=== PATIENT | female | born 1970 | race African-American/Black ===

== ENCOUNTER 2016-10-22 07:55 | Day surgery (SDC) | payer MEDICARE, MEDICAID ==
[~2016-10-22] VITALS: Ht 157.5 cm; Wt 106.0 kg
[2016-10-22] MEDS ORDERED: IRON1TAB60 PO (08:49)
[2016-10-22] MEDS ORDERED: DULO20CA45 PO (08:49)
[2016-10-22] MEDS ORDERED: RIVA10TA PO (08:49)
[2016-10-22] MEDS ORDERED: ZIPR20CA2 PO (08:49)
[2016-10-22] MEDS ORDERED: MULT-257 PO (08:49)
[2016-10-22] MEDS ORDERED: CYAN500T42 PO (08:49)
[2016-10-22] MEDS ORDERED: POTA25TA4 PO (08:49)
[2016-10-22] MEDS ORDERED: ZOLP-413 PO (08:49)
[2016-10-22] MEDS ORDERED: BENZ2AMP4 PO (08:49)
[2016-10-22] MEDS ORDERED: LACTATED RINGERS 1,000 ML IV SCH (08:56)
[2016-10-22 09:01] VITALS: BP 122/85
[2016-10-22 09:07] LABS: HCG UR OBC PASS
[2016-10-22] MEDS ORDERED: PROPOFOL 10 MG/ML, 50ML ONE (09:16)
== END 2016-10-22 11:45 ==
LOC: OUT 07:55
PROVIDERS: ATTEND Internal Medicine Gastroenterology
DX: K55.21 Angiodysplasia of colon with hemorrhage (principal); K21.9 Gastro-esophageal reflux disease without esophagitis; D50.9 Iron deficiency anemia, unspecified; K57.30 Diverticulosis of large intestine without perforation or abscess without bleeding; K64.8 Other hemorrhoids; J44.9 Chronic obstructive pulmonary disease, unspecified; F32.9 Major depressive disorder, single episode, unspecified; Z98.84 Bariatric surgery status; Z88.8 Allergy status to other drugs, medicaments and biological substances; Z91.041 Radiographic dye allergy status; Z98.890 Other specified postprocedural states; Z87.39 Personal history of other diseases of the musculoskeletal system and connective tissue
CPT/HCPCS: 43239; 45382; 81025; 88305; J2704

== ENCOUNTER → 2019-10-19 | Outpatient (CLI) | payer MEDICARE, MEDICAID ==
[~2019-10-19] MED LIST: BENZ2AMP4 PO; CYAN500T42 PO; DULO20CA45 PO; IRON1TAB60 PO; MULT-257 PO; POTA25TA4 PO; RIVA10TA2 PO; ZIPR20CA2 PO; ZOLP-413 PO
== END | disposition home or self-care (01) ==
LOC: CVU 09:22
PROVIDERS: ATTEND Internal Medicine Cardiovascular Disease
DX: I07.1 Rheumatic tricuspid insufficiency (principal); I51.7 Cardiomegaly; D68.61 Antiphospholipid syndrome
CPT/HCPCS: 93306; 93356

== ENCOUNTER → 2020-01-03 | Outpatient (CLI) | payer MEDICARE, MEDICAID ==
[~2020-01-03] MED LIST changes: +REGADENOSON 0.4 MG/5 ML SYRINGE ONE
== END | disposition home or self-care (01) ==
LOC: CFH 12:24
PROVIDERS: ATTEND Internal Medicine Cardiovascular Disease
DX: R94.31 Abnormal electrocardiogram [ECG] [EKG] (principal); R00.1 Bradycardia, unspecified
CPT/HCPCS: 78452; 93017; A9502; J2785

== ENCOUNTER 2020-06-26 22:58 | Emergency (ER) | payer MEDICARE, MEDICAID ==
[~2020-06-26] VITALS: Ht 172.7 cm; Wt 85.7 kg
[~2020-06-26 22:58] MED LIST changes: -REGADENOSON 0.4 MG/5 ML SYRINGE ONE
[2020-06-27 00:13] VITALS: BP 129/47
--- NOTE | 2020-06-27 00:13 | NUR ---
LAB AT BEDSIDE
--- NOTE | 2020-06-27 00:17 | NUR ---
THIS IS A 50F THAT COMES IN FOR FLANK PAIN FOR A COUPLE DAYS, DENIES PAINFUL URINATION HOWEVER REPORTS INC IN FREQUENCY, PT RESTING ON GURNEY NADN NO NEEDS AT THIS TIME. URINE IN LAB. PT CONNECTED TO MONITORING VSS
[2020-06-27 00:30] LABS: MICROSCOPIC INDICATED
[2020-06-27 00:30] LABS: BASOPHILS % (AUTO) 1 % (0-1); EOSINOPHILS % (AUTO) 2 % (1-7); LYMPHOCYTES % (AUTO) 28 % (22-44); MEAN CORPUSCULAR HEMOGLOBIN 28.2 pg (27.0-34.8); MEAN CORPUSCULAR HGB CONC 32.3 g/dL (32.4-35.8); MEAN PLATELET VOLUME 7.3 fL (7.4-10.4); MONOCYTES % (AUTO) 8 % (2-9); NEUTROPHILS % (AUTO) 61 % (42-75); PLATELET COUNT 235 x10^3/uL (130-400); RED BLOOD COUNT 4.54 x10^6/uL (3.82-5.3); RED CELL DISTRIBUTION WIDTH 15.6 % (9.6-15.2)
[2020-06-27 00:36] LABS: ALANINE AMINOTRANSFERASE 33 U/L (12-78); ALBUMIN 3.3 g/dL (3.4-5.0); ANION GAP 4 mmol/L (5-15); CALCIUM 8.4 mg/dL (8.5-10.1); CHLORIDE 109 mmol/L (98-107); CREATININE 0.97 mg/dL (0.55-1.02)
[2020-06-27 00:39] LABS: ALKALINE PHOSPHATASE 74 U/L (45-117); BILIRUBIN,TOTAL 0.4 mg/dL (0.2-1.0); MD NO; TOTAL PROTEIN 7.7 g/dL (6.4-8.2)
--- NOTE | 2020-06-27 01:57 | NUR ---
PT REFUSING TO DC SLAMMING PERSONAL ITEMS IN ROOM. SECURITY NOTIFIED
== END 2020-06-27 02:01 | disposition home or self-care (01) ==
LOC: ED 06-27 00:33
DX: S39.012A Strain of muscle, fascia and tendon of lower back, initial encounter (principal); Z76.0 Encounter for issue of repeat prescription; M51.36 Other intervertebral disc degeneration, lumbar region; X58.XXXA Exposure to other specified factors, initial encounter; Y93.89 Activity, other specified; Y92.89 Other specified places as the place of occurrence of the external cause; Y99.8 Other external cause status
CPT/HCPCS: 36415; 72110; 80053; 81001; 84703; 85025; 87086; 87147; 99284

== ENCOUNTER 2020-08-22 10:54 | Emergency (ER) | payer MEDICARE, MEDICAID ==
[~2020-08-22] VITALS: Ht 162.6 cm; Wt 79.0 kg
--- NOTE | 2020-08-22 11:13 | NUR ---
PT BROUGHT BY AMBULANCE FROM [facility]. PT SLOW TO RESPOND AND ANSWERING QUESTIONS IN A WHISPER, DIFFICULT TO HEAR AND UNDERSTAND. PT STATES SHE CANNOT TALK. PT INDICATES PAIN BACK OF HEAD WHEN ASKED. PT FOLLOWS COMMANDS, MOVES ALL EXTREMITIES AND COOPERATIVE. PT APPEARS DISORIENTED. LAB AT BEDSIDE DRAWING BLOOD
[2020-08-22 11:18] LABS: BASOPHILS % (AUTO) 0 % (0-1); EOSINOPHILS % (AUTO) 1 % (1-7); LYMPHOCYTES % (AUTO) 13 % (22-44); MEAN CORPUSCULAR HEMOGLOBIN 28.7 pg (27.0-34.8); MEAN CORPUSCULAR HGB CONC 32.3 g/dL (32.4-35.8); MEAN PLATELET VOLUME 7.3 fL (7.4-10.4); MONOCYTES % (AUTO) 6 % (2-9); NEUTROPHILS % (AUTO) 80 % (42-75); PLATELET COUNT 232 x10^3/uL (130-400); RED BLOOD COUNT 4.54 x10^6/uL (3.82-5.3); RED CELL DISTRIBUTION WIDTH 15.4 % (9.6-15.2)
[2020-08-22 11:28] LABS: ALANINE AMINOTRANSFERASE 25 U/L (12-78); ALBUMIN 3.4 g/dL (3.4-5.0); ANION GAP 5 mmol/L (5-15); CALCIUM 8.3 mg/dL (8.5-10.1); CHLORIDE 115 mmol/L (98-107); CREATININE 0.87 mg/dL (0.55-1.02)
[2020-08-22 11:30] LABS: SALICYLATE LEVEL < 1.7 mg/dL (2.8-20.0)
[2020-08-22 11:32] LABS: ALKALINE PHOSPHATASE 66 U/L (45-117); BILIRUBIN,TOTAL 0.6 mg/dL (0.2-1.0); TOTAL PROTEIN 7.6 g/dL (6.4-8.2)
[2020-08-22 11:37] LABS: MD SCAN
--- NOTE | 2020-08-22 11:48 | NUR ---
REMAINS REPONSIVE TO REQUESTS, LIFTING HIPS AND OPENING LEGS FOR CATH SPECIMEN. PT HAS EYES CLOSED AND WHISPERING TO HERSELF. WILL CONTINUE TO MONITOR
[2020-08-22 11:59] LABS: MICROSCOPIC INDICATED
--- NOTE | 2020-08-22 12:02 | NUR ---
WHEN ASKED PT IF SHE WANTED TO CONTACT FAMILY OR FRIENDS TO LET THEM KNOW SHE IS HERE, SHE ANSWERED IN LOW VOICE THAT SHE WANTS TO GO BACK TO WORK, SHE LEFT HER PURSE AT WORK. PT CONTINUES TO AWAIT CT
[2020-08-22 12:04] LABS: AMPHETAMINE SCREEN, URINE Negative (Negative); BARBITURATE SCREEN, URINE Negative (Negative); BENZODIAZEPINE SCREEN, URINE Negative (Negative); CANNABINOID SCREEN, URINE Negative (Negative); COCAINE SCREEN, URINE Negative (Negative); METHADONE SCREEN, URINE Negative (Negative); OPIATE SCREEN, URINE Negative (Negative)
--- NOTE | 2020-08-22 12:44 | NUR ---
AT BEDSIDE RE-EVALUATING PT
--- NOTE | 2020-08-22 12:48 | NUR ---
Bedside report from [facility]. This RN to assume full care.
--- NOTE | 2020-08-22 13:26 | NUR ---
Pt dressing self for d/c.
[2020-08-22 13:53] VITALS: BP 106/73
== END 2020-08-22 13:59 | disposition home or self-care (01) ==
LOC: ED 11:40
DX: R41.82 Altered mental status, unspecified (principal); R53.83 Other fatigue; F20.89 Other schizophrenia
CPT/HCPCS: 36415; 70450; 80053; 80299; 80307; 80320; 80329; 81001; 82140; 84703; 85025; 99284; G0480